=== PATIENT | male | born 1945 | race Caucasian/White ===

== ENCOUNTER 2019-08-08 08:42 | Emergency (ER) | payer BC, MEDICARE ==
[~2019-08-08] VITALS: Ht 167.6 cm; Wt 77.3 kg
[~2019-08-08 08:42] MED LIST: LOSA-88 PO; TRAM50TA4 PO; [UNRECOGNIZED DRUG - CODE] PO
[2019-08-08] MEDS ORDERED: LOSA1TAB42 PO (08:56)
[2019-08-08] MEDS ORDERED: ALLO300 PO (08:56)
[2019-08-08] MEDS ORDERED: ATOR40TA28 PO (08:56)
[2019-08-08 12:46] VITALS: BP 178/68
== END 2019-08-08 13:18 | disposition home or self-care (01) ==
LOC: EMS 08:43
DX: M79.645 Pain in left finger(s) (principal); R03.0 Elevated blood-pressure reading, without diagnosis of hypertension; I25.10 Atherosclerotic heart disease of native coronary artery without angina pectoris; I10 Essential (primary) hypertension; E78.00 Pure hypercholesterolemia, unspecified; Z88.0 Allergy status to penicillin